=== PATIENT | male | born 1970 | race Hispanic/Latino ===

== ENCOUNTER 2022-06-23 07:16 | Outpatient (CLI) | payer OTHER ==
[2022-06-23] MEDS ORDERED: Iopamidol 370 76% 100 ML VIAL ONE (09:50)
[2022-06-23] MEDS ORDERED: Magnevist 469MG/ML 20 ML VIAL ONE (10:13)
== END 2022-06-23 07:17 | disposition home or self-care (01) ==
LOC: CT 07:16
PROVIDERS: ATTEND Internal Medicine Hematology & Oncology
DX: C44.399 Other specified malignant neoplasm of skin of other parts of face (principal); R59.0 Localized enlarged lymph nodes; G95.9 Disease of spinal cord, unspecified; C78.00 Secondary malignant neoplasm of unspecified lung
CPT/HCPCS: 70491; 70553; 71260; 74177; A9579; Q9967

== ENCOUNTER 2022-06-24 14:48 | Outpatient (CLI) | payer OTHER | END 2022-06-24 14:49 | disposition home or self-care (01) | LOC: SCSMRI 14:48 | PROVIDERS: ATTEND Internal Medicine Hematology & Oncology | DX: C44.399 Other specified malignant neoplasm of skin of other parts of face (principal); C79.51 Secondary malignant neoplasm of bone | CPT/HCPCS: 70553 ==

== ENCOUNTER 2022-07-05 09:59 | Emergency (ER) | payer SELFPAY ==
[2022-07-05 11:13] LABS: Hemoglobin 6.3 g/dL (14.0-18.0); Mean Corpuscular HGB CONC 35.1 g/dL (32.0-36.0); Mean Corpuscular Hemoglobin 35.2 pg (27.0-31.0); Red Blood Cell (RBC) Count 1.79 mill/uL (4.70-6.10); White Blood Cell (WBC) Count 6.1 thou/uL (4.8-10.8)
[2022-07-05 11:15] LABS: #Eosinphils 0.1 thou/uL (0.0-0.7); #Lymphocytes 1.4 thou/uL (1.20-3.40); #Monocytes 0.5 thou/uL (0.11-0.59); #Neutrophils 4.1 thou/uL (1.40-6.50); %Basophils 0.4 % (0.0-1.0); %Eosinophils 0.8 % (0.0-10.0); %Lymphocytes 23.7 % (21.0-51.0); %Monocytes 8.3 % (0.0-10.0); %Neutrophils 66.8 % (42.0-75.0)
[2022-07-05 11:27] LABS: Mean Platelet Volume 10.7 fL (7.4-10.4); Platelet Count 16 thou/uL (130-400); RBC Distribution Width 12.4 % (11.5-14.5)
[2022-07-05 11:28] LABS: MDiff Complete? YES; Platelet Morphology Comment Appears Decreased; Polychromasia SLIGHT = 2-3 cells (100X) (0-2/hpf); Tear Drops SLIGHT = 2-5 cells (100X) (0-1/hpf)
[2022-07-05 11:29] LABS: ALT (SGPT) 30 U/L (8-55); AST (SGOT) 30 U/L (5-34); Albumin 3.6 g/dL (3.5-5.0); Alkaline Phosphatase 77 U/L (40-110); Anion Gap 15 mmol/L (10-20); BUN (Urea Nitrogen) 14 mg/dL (8.4-25.7); Calc. Creatinine Clearance 0 mL/min (70-130); Calcium 8.4 mg/dL (7.8-10.44); Carbon Dioxide 22 mmol/L (22-29); Chloride 101 mmol/L (98-107); Estimated GFR 105; Globulin 3.6 g/dL (2.4-3.5); Glucose 107 mg/dL (70-105); Potassium 3.9 mmol/L (3.5-5.1); Protein, Total 7.2 g/dL (6.0-8.3); Sodium 134 mmol/L (136-145)
[2022-07-05] MEDS ORDERED: Acetaminophen 500 MG TAB ONE (12:53)
[2022-07-05 15:07] LABS: SARS-CoV-2 NAA Rapid Test DETECTED (NotDetected)
== END 2022-07-05 14:56 | disposition home or self-care (01) ==
LOC: ERS 09:59
DX: D64.9 Anemia, unspecified (principal); U07.1 COVID-19
CPT/HCPCS: 36415; 36430; 80053; 85025; 86850; 86900; 86901; 99284; P9016; U0002